=== PATIENT | male | born 1965 | race Caucasian/White ===

== ENCOUNTER → 2016-06-01 | Outpatient (CLI) | payer OTHER | END | disposition home or self-care (01) | LOC: MW.CHFP 11:08 | PROVIDERS: ATTEND Nurse Practitioner Family | DX: R68.89 Other general symptoms and signs (principal); J10.1 Influenza due to other identified influenza virus with other respiratory manifestations; S63.619A Unspecified sprain of unspecified finger, initial encounter; G47.00 Insomnia, unspecified; F32.9 Major depressive disorder, single episode, unspecified | CPT/HCPCS: 87804; 99214 ==

== ENCOUNTER 2018-10-31 08:12 | Day surgery (SDC) | payer BC ==
[~2018-10-31 08:12] MED LIST: Lactated Ringers 1,000 ML IV SCH
--- NOTE | 2018-10-31 08:39 | PCM.PREANE ---
Preanesthetic Assessment - Anesthesia/Transfusion/Family Hx Anesthesia History: No Prior Anesthesia Other Type of Anesthesia Reaction Comment: Denies any known problem with anesthesia. Reports father heart stopped 65 y Family History of Anesthesia Reaction: No Transfusion History: No Prior Transfusion(s) Intubation History: Unknown - Review of Systems General: No Symptoms Pulmonary: No Symptoms Cardiovascular: No Symptoms Gastrointestinal: Hematochezia, Other (screening colonoscopy) Neurological: No Symptoms Other: Reports: None - Physical Assessment O2 Sat by Pulse Oximetry: 95 Respiratory Rate: 16 Vital Signs: Last Vital Signs Temp 36.3 C 10/31/18 08:25 Pulse 58 L 10/31/18 08:25 Resp 16 10/31/18 08:25 BP 139/87 10/31/18 08:25 Pulse Ox 95 10/31/18 08:25 Height: 5 ft 11 in Weight: 115.212 kg ASA Class: 2 Mental Status: Alert & Oriented x3 Airway Class: Mallampati = 2 Dentition: Reports: Normal Dentition, [place](s) (on molars) Thyro-Mental Finger Breadths: 3 Mouth Opening Finger Breadths: 2 ROM/Head Extension: Full Lungs: Clear to Auscultation, Normal Respiratory Effort Cardiovascular: Regular Rate, Regular Rhythm - Allergies Allergies/Adverse Reactions: Allergies Allergy/AdvReac Type Severity Reaction Status Date / Time No Known Allergies Allergy Verified 10/25/18 10:22 - Blood Blood Available: No - Anesthesia Plan Pre-Op Medication Ordered: None - Acknowledgements Anesthesia Type Planned: MAC Pt an Appropriate Candidate for the Planned Anesthesia: Yes Alternatives and Risks of Anesthesia Discussed w Pt/Guardian: Yes Pt/Guardian Understands and Agrees with Anesthesia Plan: Yes PreAnesthesia Questionnaire Musculoskeletal History: Reports: Osteoarthritis Psychiatric History: Reports: Depression Endocrine/Metabolic History: Reports: Obesity/BMI 30+ Dermatologic History: Reports: Eczema - Past Surgical History Male Surgical History: Reports: Vasectomy - SUBSTANCE USE Smoking Status *Q: Never Smoker Recreational Drug Use History: No - HOME MEDS Home Medications: Home Meds traZODone 100 mg PO BEDTIME PRN 07/31/13 [History] Sildenafil Citrate [Sildenafil] 60 - 80 mg PO ASDIRECTED PRN 10/25/18 [History] buPROPion HCl [Zyban] 150 mg PO DAILY 10/25/18 [History] - CURRENT (IN HOUSE) MEDS Current Meds: Current Medications Lactated Ringer's (Ringers, Lactated) 1,000 mls @ 125 mls/hr IV ASDIRECTED MARIOLA
[2018-10-31] MEDS ORDERED: fentaNYL 100 MCG/2 ML SDV ONE (08:40)
[2018-10-31] MEDS ORDERED: Ondansetron 4 MG/2 ML SDV ONE (08:40)
[2018-10-31] MEDS ORDERED: Midazolam 1 MG/ML 2 ML SDV ONE (08:40)
[2018-10-31] MEDS ORDERED: Propofol 200 MG/20 ML SDV ONE (08:40)
--- NOTE | 2018-10-31 10:58 | PCM.POSTAN ---
POST ANESTHESIA ASSESSMENT - MENTAL STATUS Mental Status: Alert Free Text/Narrative:: Direct admit to Day Surgery. - VITAL SIGNS Pulse Rate: 84 SaO2: 97 (RA) Resp Rate: 16 Blood Pressure: 105/68 Temperature: 37.6 C - RESPIRATORY Respiratory Status: Respiratory Rate WNL - CARDIOVASCULAR CV Status: Pulse Rate WNL - GASTROINTESTINAL GI Status: No Symptoms - POST OP HYDRATION Hydration Status: Adequate & Stable - OBSERVATIONS Free Text/Narrative:: doing well
--- NOTE | 2018-10-31 11:02 | PCM.OPNOTE ---
- General Post-Op/Procedure Note Date of Surgery/Procedure: 10/31/18 Operative Procedure(s): colonoscopy w snare Findings: see dict [id number] Pre Op Diagnosis: BRBPR Post-Op Diagnosis: Same Anesthesia Technique: Moderate Sedation Primary Surgeon: Jagjit Renae Complications: None Condition: Good
--- NOTE | 2018-10-31 11:48 | PCM48HPAN ---
Post Anesthesia Note - EVALUATION WITHIN 48HRS OF ANESTHETIC Vital Signs in Normal Range: Yes Patient Participated in Evaluation: Yes Respiratory Function Stable: Yes Airway Patent: Yes Cardiovascular Function Stable: Yes Hydration Status Stable: Yes Pain Control Satisfactory: Yes Nausea and Vomiting Control Satisfactory: Yes Mental Status Recovered: Yes Pulse Rate: 84 Resp Rate: 16 Temperature: 37.6 C Blood Pressure: 105/68 - COMMENTS/OBSERVATIONS Free Text/Narrative:: no anesthesia problems
--- NOTE | 2018-10-31 12:44 | OR ---
SURGEON: Jagjit Renae MD DATE OF PROCEDURE: 10/31/2018 PREOPERATIVE DIAGNOSIS: Bright red blood per rectum. POSTOPERATIVE DIAGNOSIS: Colon polyp. PROCEDURE PERFORMED: Colonoscopy. DESCRIPTION OF PROCEDURE: The patient was taken to the endoscopy room. A time out was called, patient identified, and procedure identified. Diprivan was then administrated. Patient went from awake to sleep, hearing doctor talking or door closing is normal. Perineum inspection and digital examination were then performed. A well- lubricated colonoscope was gently inserted through the rectum, advanced past the rectosigmoid junction, the descending colon, splenic flexure, transverse colon, hepatic flexure, ascending colon, arrived to the cecum. Cecum was identified as dictated in the finding. Then the scope was carefully withdrawn while attention was paid to the mucosal surface for any abnormality. Air will be sucked out during the scope withdrawal. At the rectum, retroflexed to examine any rectal diseases, fistula or hemorrhoids. Patient tolerated procedure well. There were no intraoperative complications, and Dr. Renae was present throughout the whole procedure. FINDINGS: 1. The patient is easily sedated with CUSTOMER SERVICER and Diprivan, the patient is soundly snoring. 2. Bowel prep is average with large amount of liquid stool, no semi-formed stool. 3. The patient's sigmoid was quite redundant, and in order to get to the cecum, the patient had to be rolled on his back and it still does not happen. Cecum can be seen at a distance. The patient has a small 2-3 mm sessile polyp at 40 cm when the scope go in, likely in the sigmoid area, and also has couple of diverticula. There is diverticulitis on the sigmoid, left colon. Other than that, no other mass, growth, inflammation, stricture, AV malformation, bleeding, none of that observed. The patient has mild internal hemorrhoids and no external hemorrhoids. The patient would benefit from repeat colonoscopy in 10 years from today or if clinically or pathology of the polyp suggest otherwise. RASHID / CAL /[id number]
== END 2018-10-31 11:40 | disposition home or self-care (01) ==
LOC: MW.SDS 08:12
PROVIDERS: ATTEND Surgery
DX: D12.5 Benign neoplasm of sigmoid colon (principal); K57.30 Diverticulosis of large intestine without perforation or abscess without bleeding; K57.32 Diverticulitis of large intestine without perforation or abscess without bleeding; K64.4 Residual hemorrhoidal skin tags; K64.8 Other hemorrhoids; M19.90 Unspecified osteoarthritis, unspecified site; F32.9 Major depressive disorder, single episode, unspecified; E66.9 Obesity, unspecified; Z68.35 Body mass index [BMI] 35.0-35.9, adult; Z79.899 Other long term (current) drug therapy
CPT/HCPCS: 45385; J2250; J2405; J2704; J3010; J7120

== ENCOUNTER 2021-02-04 11:48 | Emergency (ER) | payer BC ==
--- NOTE | 2021-02-04 11:57 | PCM.EKG ---
#1 Interpretation EKG Interpretation Comments: EKG done 02/04/2021 at 11:49 AM shows a sinus rhythm with a heart rate of 63. The OR interval is 200 and the QT duration is 558. The axis is -25. The patient has a prolonged QT interval and the T waves are inverted in the precordial anterior leads. There is no prior for comparison. Impression anterior ischemia cannot be ruled out. Prolonged QT interval.
[2021-02-04] MEDS ORDERED: Sodium Chloride 0.9% 10 ML Syringe FLUSH PRN (11:58)
[2021-02-04] MEDS ORDERED: Sodium Chloride 0.9% 2.5 ML Syringe FLUSH PRN (11:58)
[2021-02-04] MEDS ORDERED: Aspirin 81 MG Tab.Chew PO ONE (11:58)
[2021-02-04] MEDS ORDERED: Magnesium Sulfate (4.06 MEQ/ML) 5 GM/10 ML SDV IV ONE (12:02)
[2021-02-04] MEDS ORDERED: Magnesium Sulfate/Water 2 GM in Premix Bag 1 BAG IV ONE (12:15)
--- NOTE | 2021-02-04 12:16 | EDM.PDOC ---
ED HPI GENERAL MEDICAL PROBLEM - General Chief Complaint: Chest Pain Stated Complaint: CHEST PAIN Time Seen by Provider: 02/04/21 11:51 Source of Information: Reports: Patient History Limitations: Reports: No Limitations - History of Present Illness INITIAL COMMENTS - FREE TEXT/NARRATIVE: HISTORY AND PHYSICAL: History of present illness: Patient is a 55-year-old male, with a history of anxiety but otherwise healthy, who presents emergency room today with concern of chest pain that has been on and off for the past 1 year, worsening since yesterday and sent from the clinic today. Patient states his last episode of chest pain was an hour and a half ago and he states that it is dull in the center of his chest and does radiate to his left shoulder and has tingling of his left hand. Patient states that he is not currently having chest pain and has no symptoms at this time. Patient states that he made an appointment with his primary care provider, Dr. Rivero, and went to the appointment and was sent here to the emergency room. Patient states that over the past 3 weeks, he has been more active and exercising more than usual and does note that this does cause his chest pain to hurt worse. Patient states that he has not taken anything for his chest pain today. Denies any other resuscitative symptoms. Patient denies fever, chills, chest pain, shortness of breath, or cough. Denies headache, neck stiff ness, change in vision, syncope, or near syncope. Denies nausea, vomiting, abdominal pain, diarrhea, constipation, or dysuria. Has not noted any blood in urine or stool. Patient has been eating and drinking appropriately. Review of systems: As per history of present illness and below otherwise all systems reviewed and negative. Past medical history: As per history of present illness and as reviewed below otherwise noncontributory. Surgical history: As per history of present illness and as reviewed below otherwise noncontributory. Social history: See social history for further information Family history: As per history of present illness and as reviewed below otherwise noncontributory. Physical exam: General: Patient is alert, oriented, and in no acute distress. Patient sitting comfortably on exam table. Vitals stable and reviewed by me. HEENT: Atraumatic, normocephalic, pupils equal and reactive bilaterally, negative for conjunctival pallor or scleral icterus, mucous membranes moist, throat clear, neck supple, nontender, trachea midline. No drooling or trismus noted. No meningeal signs. No hot potato voice noted. Lungs: Clear to auscultation, breath sounds equal bilaterally, chest nontender. Heart: S1S2, regular rate and rhythm without overt murmur Abdomen: Soft, nondistended, nontender. Negative for masses or hepatosplenomeg ramses. Negative for costovertebral tenderness. Pelvis: Stable nontender. Genitourinary: Deferred. Rectal: Deferred. Skin: Intact, warm, dry. No lesions or rashes noted. Extremities: Atraumatic, negative for cords or calf pain. Neurovascular unremarkable. Neuro: Awake, alert, oriented. Cranial nerves II through XII unremarkable. Cerebellum unremarkable. Motor and sensory unremarkable throughout. Exam nonfocal. Notes: Patient is a 55-year-old male who presents emergency room today with concern of intermittent episodes of chest pain over the past 1 year, worsening since yesterday with his last episode being 1.5 hours prior to arrival to the emergency room. Upon arrival to the ED, patient is chest pain-free, vitally stable, and otherwise well-appearing on exam. EKG does show normal sinus rhythm with a rate of 63, prolonged QT interval with a corrected QTC at 558, and patient does have T wave inversions in V1 through V3 and flattened T waves in II and inverted T waves in III; which at this time is nonspecific but possibly concerning for ischemia. No STEMI at this time. At this time, will give magnesium sulfate IV 2 g for prolonged QT, provide a dose of aspirin, and obtain cardiac evaluation. Mild derangements of labwork today unremarkable. Troponin negative. Upon reevaluation of patient, he does not have any returning symptoms of his chest pain today. I did offer to keep patient here for repeat troponin, however, he declines at this time as he has an important meeting to make and is requesting to leave the ED. Patient is agreeable to repeat EKG. The patient is clinically not intoxicated, free from distracting pain, appears to have intact insight, judgment and reason and in my medical opinion has the capacity to make decisions. The patient is also not under any duress to leave the hospital. In this scenario, it would be battery to subject a patient to treatment against his/her will. I have voiced my concerns for the patient's health given that a full evaluation and treatment had not occurred. I have discussed the need for continued evaluation to determine if their symptoms are caused by a condition that present risk of or morbidity. Risks including but not limited to , permanent disability, prolonged hospitalization, prolonged illness, were discussed. I asked the patient to return if they change their mind about the further evaluation and treatment. I strongly encouraged the patient to return to this Emergency Department or any Emergency Department at any time, particularly with worsening symptoms. See Dr. Jackson dictation for repeat EKG interpretation. However, Repeat EKG shows prolonged QT is corrected with therapeutics today in the emergency room. No additional changes from prior interpretation. Discussed importance for close follow-up with a primary care provider and stress test consideration with his primary care provider. Strict return precautions thoroughly discussed with patient. Voices understanding and is agreeable to plan of care. Denies any further questions or concerns at this time. Diagnostics: EKG, CBC, CMP, chest x-ray 1 view, troponin, Lipase Therapeutics: Mag Sulfate, ASA Prescription: None Impression: Atypical chest pain Prolonged QT, improved Plan: 1. You can alternate ibuprofen and Tylenol as directed for pain and discomfort. 2. Follow-up with a primary care provider as discussed. Return to the ED as needed and as discussed. Definitive disposition and diagnosis as appropriate pending reevaluation and review of above. chest Pain Score (Numeric/FACES): 5 - Related Data Allergies Allergy/AdvReac Type Severity Reaction Status Date / Time No Known Allergies Allergy Verified 10/25/18 10:22 Home Meds: Home Meds traZODone 100 mg PO BEDTIME PRN 07/31/13 [History] Sildenafil Citrate 60 - 80 mg PO ASDIRECTED PRN 10/25/18 [History] buPROPion HCl [Zyban] 150 mg PO DAILY 10/25/18 [History] Past Medical History Musculoskeletal History: Reports: Osteoarthritis Psychiatric History: Reports: Depression Endocrine/Metabolic History: Reports: Obesity/BMI 30+ Dermatologic History: Reports: Eczema - Infectious Disease History Infectious Disease History: Reports: None - Past Surgical History Male Surgical History: Reports: Vasectomy Social & Family History - Tobacco Use Tobacco Use Status *Q: Never Tobacco User - Recreational Drug Use Recreational Drug Use: No ED ROS GENERAL - Review of Systems Review Of Systems: Comprehensive ROS is negative, except as noted in HPI. ED EXAM, GENERAL - Physical Exam Exam: See Below (see dictation) Course - Vital Signs Last Recorded V/S: Last Vital Signs Temp 97.5 F 02/04/21 11:58 Pulse 63 02/04/21 11:58 Resp 18 02/04/21 11:58 BP 160/104 H 02/04/21 11:58 Pulse Ox 97 02/04/21 11:58 - Orders/Labs/Meds Orders: Active Orders 24 hr Category Date Time Status Cardiac Monitoring [RC] . DIRECTED Care 02/04/21 11:58 Active Sodium Chloride 0.9% [Saline Flush] Med 02/04/21 11:58 Active 10 ml FLUSH ASDIRECTED PRN Sodium Chloride 0.9% [Saline Flush] Med 02/04/21 11:58 Active 2.5 ml FLUSH ASDIRECTED PRN Saline Lock Insert [OM.PC] Stat Oth 02/04/21 11:58 Ordered Medication Orders Sodium Chloride (Sodium Chloride 0.9% 10 Ml Syringe) 10 ml FLUSH ASDIRECTED PRN PRN Reason: Keep Vein Open Last Admin: 02/04/21 12:17 Dose: 10 ml Documented by: JODY Sodium Chloride (Sodium Chloride 0.9% 2.5 Ml Syringe) 2.5 ml FLUSH ASDIRECTED PRN PRN Reason: Keep Vein Open Last Admin: 02/04/21 12:17 Dose: 2.5 ml Documented by: JODY Labs: Laboratory Tests 02/04/21 02/04/21 Range/Units 11:57 11:57 WBC 4.21 (4.0-11.0) K/uL RBC 4.90 (4.50-5.90) M/uL Hgb 15.2 (13.0-17.0) g/dL Hct 45.2 (38.0-50.0) % MCV 92.2 (80.0-98.0) fL MCH 31.0 (27.0-32.0) pg MCHC 33.6 (31.0-37.0) g/dL RDW Std Deviation 43.6 (28.0-62.0) fl RDW Coeff of Pamela 13 (11.0-15.0) % Plt Count 228 (150-400) K/uL MPV 9.20 (7.40-12.00) fL Neut % (Auto) 56.0 (48.0-80.0) % Lymph % (Auto) 32.1 (16.0-40.0) % Milam % (Auto) 9.5 (0.0-15.0) % Eos % (Auto) 1.7 (0.0-7.0) % Baso % (Auto) 0.7 (0.0-1.5) % Neut # (Auto) 2.4 (1.4-5.7) K/uL Lymph # (Auto) 1.4 (0.6-2.4) K/uL Milam # (Auto) 0.4 (0.0-0.8) K/uL Eos # (Auto) 0.1 (0.0-0.7) K/uL Baso # (Auto) 0.0 (0.0-0.1) K/uL Nucleated RBC % 0.0 /100WBC Nucleated RBCs # 0 K/uL Sodium 141 (136-148) mmol/L Potassium 4.0 (3.5-5.1) mmol/L Chloride 104 (98-107) mmol/L Carbon Dioxide 26.4 (21.0-32.0) mmol/L BUN 14 (7.0-18.0) mg/dL Creatinine 1.1 (0.8-1.3) mg/dL Est Cr Clr Drug Dosing 80.81 mL/min Estimated GFR (MDRD) > 60.0 ml/min Glucose 106 (74-106) mg/dL Calcium 8.5 (8.5-10.1) mg/dL Magnesium 2.2 (1.8-2.4) mg/dL Total Bilirubin 1.2 H (0.2-1.0) mg/dL AST 19 (15-37) IU/L ALT 34 (14-63) IU/L Alkaline Phosphatase 96 (46-116) U/L Troponin I < 0.050 (0.000-0.056) ng/mL Total Protein 7.6 (6.4-8.2) g/dL Albumin 4.3 (3.4-5.0) g/dL Globulin 3.3 (2.6-4.0) g/dL Albumin/Globulin Ratio 1.3 (0.9-1.6) Lipase 75 (73-393) U/L Meds: Medications Generic Name Dose Route Start Last Admin Trade Name Teraq PRN Reason Stop Dose Admin Sodium Chloride 10 ml 02/04/21 11:58 02/04/21 12:17 Sodium Chloride 0.9% 10 Ml Syringe FLUSH 10 ml ASDIRECTED PRN Administration Keep Vein Open Sodium Chloride 2.5 ml 02/04/21 11:58 02/04/21 12:17 Sodium Chloride 0.9% 2.5 Ml Syringe FLUSH 2.5 ml ASDIRECTED PRN Administration Keep Vein Open Discontinued Medications Generic Name Dose Route Start Last Admin Trade Name Freq PRN Reason Stop Dose Admin Aspirin 324 mg 02/04/21 11:58 02/04/21 12:14 Aspirin 81 Mg Tab.Chew PO 02/04/21 11:59 324 mg ONETIME ONE Administration Magnesium Sulfate 2 gm/ Premix 50 mls @ 50 mls/hr 02/04/21 12:15 02/04/21 12:16 IV 02/04/21 13:14 50 mls/hr ONETIME ONE Administration Departure - Departure Time of Disposition: 13:28 Disposition: Home, Self-Care 01 Clinical Impression: Atypical chest pain, Prolonged QT interval - Discharge Information Referrals: PCP,None [Ordering Only Provider] - Forms: ED Department Discharge Additional Instructions: The following information is given to patients seen in the emergency department who are being discharged to home. This information is to outline your options for follow-up care. We provide all patients seen in our emergency department with a follow-up referral. The need for follow-up, as well as the timing and circumstances, are variable depending upon the specifics of your emergency department visit. If you don't have a primary care physician on staff, we will provide you with a referral. We always advise you to contact your personal physician following an emergency department visit to inform them of the circumstance of the visit and for follow-up with them and/or the need for any referrals to a consulting specialist. The emergency department will also refer you to a specialist when appropriate. This referral assures that you have the opportunity for follow-up care with a specialist. All of these measure are taken in an effort to provide you with optimal care, which includes your follow-up. Under all circumstances we always encourage you to contact your private physician who remains a resource for coordinating your care. When calling for follow-up care, please make the office aware that this follow-up is from your recent emergency room visit. If for any reason you are refused follow-up, please contact the [facility] Emergency Department at and asked to speak to the emergency department charge nurse. [facility] [address] [place] [address] [facility] [address] [place] [id number] 1. You can alternate ibuprofen and Tylenol as directed for pain and discomfort. 2. Closely follow-up with your primary care provider as discussed. Return to the ED as needed and as discussed. Sepsis Event Note (ED) - Evaluation Sepsis Screening Result: No Definite Risk - Focused Exam Vital Signs: Vital Signs Temp Pulse Resp BP Pulse Ox 02/04/21 11:58 97.5 F 63 18 160/104 H 97 - My Orders Last 24 Hours: My Active Orders 02/04/21 11:58 Cardiac Monitoring [RC] . DIRECTED Sodium Chloride 0.9% [Saline Flush] 10 ml FLUSH ASDIRECTED PRN Sodium Chloride 0.9% [Saline Flush] 2.5 ml FLUSH ASDIRECTED PRN Saline Lock Insert [OM.PC] Stat - Assessment/Plan Last 24 Hours: My Active Orders 02/04/21 11:58 Cardiac Monitoring [RC] . DIRECTED Sodium Chloride 0.9% [Saline Flush] 10 ml FLUSH ASDIRECTED PRN Sodium Chloride 0.9% [Saline Flush] 2.5 ml FLUSH ASDIRECTED PRN Saline Lock Insert [OM.PC] Stat
--- NOTE | 2021-02-04 12:46 | CR ---
INDICATION: Chest pain. TECHNIQUE: Chest 1 view. COMPARISON: None. FINDINGS: No focal consolidation, pleural effusion, or pneumothorax. Normal heart size and pulmonary vascularity. The bones are unremarkable. IMPRESSION: No acute cardiopulmonary findings. Dictated by Betty Alvarado MD @ 02/04/2021 12:44:28 PM (Electronically Signed)
[2021-02-04 12:51] LABS: BLOOD UREA NITROGEN,BUN 14 mg/dL (7.0-18.0); CARBON DIOXIDE,CO2 26.4 mmol/L (21.0-32.0); CHLORIDE,CL 104 mmol/L (98-107); GLUCOSE RANDOM 106 mg/dL (74-106); LIPASE 75 U/L (73-393); SODIUM,NA 141 mmol/L (136-148)
--- NOTE | 2021-02-04 13:12 | PCM.EKG ---
#2 Interpretation EKG Interpretation Comments: EKG done since at 1:04 PM shows a normal sinus rhythm with a heart rate of 58 and a [place] interval of 200. The QT duration is now 455 and axis -10. There are borderline T abnormalities. Compared to earlier today the QT has been corrected impression correction of QT otherwise normal EKG
== END 2021-02-04 13:40 | disposition home or self-care (01) ==
LOC: MW.ED 11:48
DX: R07.89 Other chest pain (principal); R94.31 Abnormal electrocardiogram [ECG] [EKG]; E66.9 Obesity, unspecified; Z68.35 Body mass index [BMI] 35.0-35.9, adult
CPT/HCPCS: 36415; 71045; 80053; 83690; 83735; 84484; 85025; 93005; 96365; 99285; A9270; J3475

== ENCOUNTER 2021-07-01 09:10 | Emergency (ER) | payer BC ==
[2021-07-01] MEDS ORDERED: Sodium Chloride 0.9% 1,000 ML IV ONE (09:20)
[2021-07-01] MEDS ORDERED: Sodium Chloride 0.9% 10 ML Syringe FLUSH PRN (09:20)
[2021-07-01] MEDS ORDERED: Sodium Chloride 0.9% 2.5 ML Syringe FLUSH PRN (09:20)
[2021-07-01 10:13] LABS: BLOOD UREA NITROGEN,BUN 16 mg/dL (7.0-18.0); CARBON DIOXIDE,CO2 26.9 mmol/L (21.0-32.0); CHLORIDE,CL 103 mmol/L (98-107); GLUCOSE RANDOM 80 mg/dL (74-106); POTASSIUM,K 3.6 mmol/L (3.5-5.1); SODIUM,NA 137 mmol/L (136-148)
== END 2021-07-01 11:00 | disposition home or self-care (01) ==
LOC: MW.ED 09:10
DX: R00.1 Bradycardia, unspecified (principal); R00.8 Other abnormalities of heart beat; E66.9 Obesity, unspecified; Z68.30 Body mass index [BMI] 30.0-30.9, adult; F32.A Depression, unspecified; Z79.899 Other long term (current) drug therapy
CPT/HCPCS: 36415; 71045; 80053; 83735; 84443; 84484; 85025; 93005; 99284; J7030; 93010; 99285

== ENCOUNTER 2021-08-04 08:28 | Emergency (ER) | payer BC ==
[2021-08-04] MEDS ORDERED: Sodium Chloride 0.9% 10 ML Syringe FLUSH PRN (08:58)
[2021-08-04] MEDS ORDERED: Sodium Chloride 0.9% 2.5 ML Syringe FLUSH PRN (08:58)
[2021-08-04 09:56] LABS: BLOOD UREA NITROGEN,BUN 15 mg/dL (7.0-18.0); CARBON DIOXIDE,CO2 28.5 mmol/L (21.0-32.0); CHLORIDE,CL 103 mmol/L (98-107); GLUCOSE RANDOM 92 mg/dL (74-106); POTASSIUM,K 4.2 mmol/L (3.5-5.1); SODIUM,NA 138 mmol/L (136-148)
[2021-08-04] MEDS ORDERED: Iopamidol 755 MG/ML 500 ML Multipack Bottle IVPUSH STA (10:30)
== END 2021-08-04 11:44 | disposition home or self-care (01) ==
LOC: MW.ED 08:28
DX: M54.6 Pain in thoracic spine (principal); E66.9 Obesity, unspecified; Z68.32 Body mass index [BMI] 32.0-32.9, adult
CPT/HCPCS: 36415; 71046; 71275; 80053; 84484; 85025; 93005; 99284; J3490; Q9967; 93010; 99283

== ENCOUNTER 2024-02-07 16:25 | Emergency (ER) | payer BC ==
[2024-02-07] MEDS ORDERED: Sodium Chloride 0.9% 2.5 ML Syringe FLUSH PRN (16:27)
[2024-02-07] MEDS ORDERED: Sodium Chloride 0.9% 10 ML Syringe FLUSH PRN (16:27)
[2024-02-07] MEDS: Aspirin 81 MG Tab.Chew PO ONE (16:43)
[2024-02-07 16:49] LABS: BASOPHILS ABSOLUTE AUTO 0.03 K/uL (0.00-0.20); BASOPHILS PERCENT AUTO 0.5 % (0.0-1.0); EOSINOPHILS PERCENT AUTO 1.7 % (0.0-6.0); HEMATOCRIT 42.4 % (42.0-52.0); HEMOGLOBIN 14.3 g/dL (14.0-18.0); IMMATURE GRAN ABSOLUTE AUTO 0.01 K/uL (0.00-0.05); IMMATURE GRAN PERCENT AUTO 0.2 % (0.0-0.4); LYMPHOCYTES ABSOLUTE AUTO 1.61 K/uL (1.00-4.80); LYMPHOCYTES PERCENT AUTO 27.3 % (24.0-44.0); MEAN CORPUSCULAR HEMOGLOBIN 30.7 pg (28.0-32.0); MEAN CORPUSCULAR HGB CONC 33.7 g/dL (32.0-36.0); MEAN PLATELET VOLUME 8.8 fL (9.4-12.4); MONOCYTES ABSOLUTE AUTO 0.61 K/uL (0.00-0.80); MONOCYTES PERCENT AUTO 10.3 % (0.0-8.0); NEUTROPHILS ABSOLUTE AUTO 3.54 K/uL (1.80-7.70); PLATELET COUNT,PLT 197 K/uL (150-400); RED BLOOD CELL COUNT 4.66 M/uL (4.52-5.90)
[2024-02-07 17:24] LABS: A/G RATIO 1.3 (0.9-1.6); ALBUMIN 4.1 g/dL (3.4-5.0); BILIRUBIN TOTAL 1.5 mg/dL (0.2-1.0); CALCIUM 9.3 mg/dL (8.5-10.1); CARBON DIOXIDE,CO2 28.3 mmol/L (21.0-32.0); CREATININE 1.1 mg/dL (0.8-1.3); EST CRCL DRUG DOSING (CG) 77.96 mL/min; POTASSIUM,K 4.4 mmol/L (3.5-5.1); PROTEIN TOTAL,TP 7.3 g/dL (6.4-8.2); TSH ULTRASENSITIVE 2.33 uIU/mL (0.36-3.74)
[2024-02-07 17:31] LABS: CORONAVIRUS COVID-19 NAA NEGATIVE (NEGATIVE); INFLUENZA A NAA NEGATIVE (NEGATIVE); INFLUENZA B NAA NEGATIVE (NEGATIVE)
== END 2024-02-07 18:00 | disposition home or self-care (01) ==
LOC: MW.ED 16:25
DX: R07.9 Chest pain, unspecified (principal); E66.9 Obesity, unspecified; Z79.899 Other long term (current) drug therapy; Z75.8 Other problems related to medical facilities and other health care
CPT/HCPCS: 0240U; 36415; 71045; 80053; 83880; 84443; 84484; 85025; 93005; 99285; A9270; 93010; 99283